=== PATIENT | female | born 1985 | race African-American/Black ===

== ENCOUNTER 2017-01-06 17:01 | Emergency (ER) | payer OTHER ==
[2017-01-06 17:43] LABS: #Monocytes 0.3 thou/uL (0.11-0.59); #Neutrophils 1.9 thou/uL (1.40-6.50); %Basophils 0.3 % (0.0-1.0); %Eosinophils 0.4 % (0.0-10.0); %Lymphocytes 30.4 % (21.0-51.0); %Monocytes 10.6 % (0.0-10.0); Hematocrit 33.9 % (36.0-47.0); Mean Platelet Volume 6.6 fL (7.4-10.4); Red Blood Cell (RBC) Count 3.81 mill/uL (4.20-5.40); White Blood Cell (WBC) Count 3.2 thou/uL (4.8-10.8)
[2017-01-06 18:07] LABS: ALT (SGPT) 35 U/L (8-55); AST (SGOT) 28 U/L (5-34); Alkaline Phosphatase 81 U/L (40-150); Anion Gap 13 mmol/L (10-20); BUN (Urea Nitrogen) 8 mg/dL (7.0-18.7); Bilirubin, Total 0.3 mg/dL (0.2-1.2); CK (CPK) 38 U/L (29-168); Calc. Creatinine Clearance 0 mL/min (70-130); Calcium 10.1 mg/dL (7.8-10.44); Carbon Dioxide 22 mmol/L (22-29); Chloride 104 mmol/L (98-107); Estimated GFR-MDRD Greater than 90; Lipase 12 U/L (8-78); Protein, Total 7.8 g/dL (6.0-8.3)
[2017-01-06 18:10] LABS: Troponin I Less than 0.010 ng/mL (< 0.028)
[2017-01-06] MEDS ORDERED: Acetaminophen 325 MG Suppository ONE (18:47)
[2017-01-06] MEDS ORDERED: Acetaminophen 325 MG TAB ONE (18:48)
--- NOTE | 2017-01-06 19:34 | RAD ---
CHEST ONE VIEW: 01/06/18 COMPARISON: 10/01/10 study. HISTORY: Sharp pain in chest. Patient was shielded for this exam. Heart size and mediastinum are within normal limits. The lungs are clear of infiltrates. No bony fin dings. IMPRESSION: No active intrathoracic disease. POS: [facility]
== END 2017-01-06 19:42 | disposition home or self-care (01) ==
LOC: ERS 17:01
DX: O99.89 Other specified diseases and conditions complicating pregnancy, childbirth and the puerperium (principal); M54.6 Pain in thoracic spine; R07.89 Other chest pain; Z87.891 Personal history of nicotine dependence; Z3A.00 Weeks of gestation of pregnancy not specified
CPT/HCPCS: 71010; 80053; 82553; 83690; 84484; 85025; 93005

== ENCOUNTER 2017-03-17 10:03 | Day surgery (SDC) | payer OTHER ==
[2017-03-17 11:31] VITALS: BP 151/89; TEMP 98.1
[2017-03-17 11:32] VITALS: BMI 39.7
--- NOTE | 2017-03-17 13:05 | PDOC.LDHP ---
Labor and Delivery H&P Chief complaint: other (Elevated blood pressure) HPI: Patient is a 32 year old 002 @ 36.2 weeks who presents for evaluation of elevated blood pressure. Patient was sent over from clinic where she had blood pressures of 140s/90s. Outpatient workup was started but is incomplete. The decision was made to admit patient to L&D for observation/preeclampsia workup. She complains of 3 week history of "seeing spots" in her visual [place] intermittently. She denies headache, loss of fluid, decrease in movement and vaginal bleeding. Current gestational age (weeks): 36 (36.3 weeks) Due date: 04/11/17 Dating criteria: last menstrual period Current complications: gestational hypertension, other (glucose intolerance; recurrent UTIs on suppressive therapy.) Past Medical History: None Current medications: pre-bonita vitamins, other (Keflex) Previous surgical history: low tranverse CS Social history: none - Physical Exam Vital signs reviewed and normal: yes (BP: 151/89) Heart: RRR Abdomen: gravid Extremeties: no edema FHT: category 1 (reactive strip) Brinckerhoff contractions every: none - OB Labs Blood type: O RH: positive Antibody Screen: negative HIV: negative RPR: negative HEPSAg: negative 1 hour GCT: positive 3 hour GTT: negative ((199 after 1 hr; 2 and 3 hr values normal)) GBS: unknown Rubella: immune - Assessment Gestational Hypertension (rule out preeclampsia) - Plan -: We will order CBC, CMP, Uric acid, Urine protein and creatinine to evaluate for presence of preeclampsia. Continue routine BP and monitoring. If gestational HTN or pre-e without severe features present, will discharge with follow-up for testing. <Margarita Deng - Last Filed: 03/17/17 13:02> <Hong Medellin - Last Filed: 03/17/17 13:44> Allergies/Adverse Reactions: Allergies Allergy/AdvReac Type Severity Reaction Status Date / Time No Known Drug Allergies Allergy Verified 03/17/17 11:25 Attending Addendum - Attending Addendum I personally evaluated the patient and discussed the management with Dr. Deng. The H&P is repeated by me. I agree with the History, Examination, Assessment and Plan documented above with any addition or exceptions noted below. <Hong Medellin - Last Filed: 03/17/17 13:44>
[2017-03-17 13:22] LABS: #Basophils 0.1 thou/uL (0.0-0.2); #Lymphocytes 1.6 thou/uL (1.20-3.40); #Monocytes 0.3 thou/uL (0.11-0.59); #Neutrophils 2.4 thou/uL (1.40-6.50); %Basophils 1.9 % (0.0-1.0); %Eosinophils 0.5 % (0.0-10.0); %Lymphocytes 36.4 % (21.0-51.0); %Monocytes 7.4 % (0.0-10.0); %Neutrophils 53.9 % (42.0-75.0); Hemoglobin 11.5 g/dL (12.0-16.0); Mean Corpuscular HGB CONC 34.6 g/dL (32.0-36.0); Mean Corpuscular Volume 89.6 fl (81.0-99.0); Mean Platelet Volume 6.5 fL (7.4-10.4); Platelet Count 208 thou/uL (130-400); RBC Distribution Width 13.4 % (11.5-14.5); Red Blood Cell (RBC) Count 3.71 mill/uL (4.20-5.40); White Blood Cell (WBC) Count 4.5 thou/uL (4.8-10.8)
[2017-03-17 13:56] LABS: ALT (SGPT) 17 U/L (8-55); AST (SGOT) 15 U/L (5-34); Albumin 3.6 g/dL (3.5-5.0); Alkaline Phosphatase 116 U/L (40-150); Anion Gap 12 mmol/L (10-20); BUN (Urea Nitrogen) 7 mg/dL (7.0-18.7); Bilirubin, Total 0.4 mg/dL (0.2-1.2); Calc. Creatinine Clearance 194 mL/min (70-130); Calcium 9.6 mg/dL (7.8-10.44); Carbon Dioxide 19 mmol/L (22-29); Chloride 106 mmol/L (98-107); Estimated GFR-MDRD Greater than 90; Globulin 3.7 g/dL (2.4-3.5); Glucose 88 mg/dL (70-105); Potassium 4.1 mmol/L (3.5-5.1); Protein, Total 7.3 g/dL (6.0-8.3); Sodium 133 mmol/L (136-145); Uric Acid 3.9 mg/dL (2.6-6.0)
[2017-03-17 14:41] LABS: Creatinine, Urine 138.27 mg/dL (47-110)
== END 2017-03-17 15:10 | disposition home or self-care (01) ==
LOC: L&D/OP 10:03
PROVIDERS: ATTEND Family Medicine
DX: O99.89 Other specified diseases and conditions complicating pregnancy, childbirth and the puerperium (principal); O16.3 Unspecified maternal hypertension, third trimester; E74.39 Other disorders of intestinal carbohydrate absorption; Z3A.36 36 weeks gestation of pregnancy; Z79.2 Long term (current) use of antibiotics; Z79.899 Other long term (current) drug therapy; Z98.890 Other specified postprocedural states; Z87.440 Personal history of urinary (tract) infections; Z87.891 Personal history of nicotine dependence
CPT/HCPCS: 36415; 80053; 82570; 84156; 84550; 85025; 99282

== ENCOUNTER 2017-03-23 11:05 | Inpatient (IN) | payer OTHER ==
[2017-03-23 11:44] VITALS: BMI 39.4
--- NOTE | 2017-03-23 11:55 | PDOC.LDHP ---
Labor and Delivery H&P Chief complaint: other (Dizziness, Nose bleed with history of high blood pressures) HPI: 32 year old at 37.1 weeks by LMP/14.2 wk sono presents for nose bleed, dizziness and high blood pressure readings. Onset of symptoms 2 days ago. Stated she got dizzy to the point that she felt unsteady and needed assistance walking. That has since resolved. She also has nasal congestion which has been present for the last couple of days. Patient denies any complications in current . She has had several high BP readings, but has not been diagnosed with pre-eclampsia. Current gestational age (weeks): 37 (37.1 wks) Due date: 04/09/16 Dating criteria: last menstrual period, first trimester ultrasound (LMP/14.2 wk sono) Grav: 3 Para: 2 OB History Details: No complications. Several high blood pressure readings without diagnosis of gestational HTN or pre-eclampsia. Current complications: other (Recurrent UTI's. Several high blood pressure readings.) Abnormal US findings: No Past Medical History: None Current medications: pre- vitamins, other (Keflex for recurrent UTI's) Previous surgical history: low tranverse CS (x2) Social history: none - Physical Exam Vital signs reviewed and normal: yes Abnormal vital signs: BP 145/90 General: NAD, resting Heart: RRR Lungs: CTAB Abdomen: NTTP Extremeties: no edema FHT: category 1, variability present Pepin contractions every: none - OB Labs Blood type: O RH: positive HIV: negative RPR: negative 1 hour GCT: positive 3 hour GTT: negative Rubella: immune - Assessment Term with elevated BP readings. - Plan Plan: admit to L&D -: -Will continue to monitor BP and FHR. Patient has had two prior LTCS. Will consider scheduling for C/S if elevated BP persists. -Pre-eclampsia labs pending <Bibi Goldberg - Last Filed: 03/23/17 13:38> <Marifer Ge - Last Filed: 03/23/17 14:16> Allergies/Adverse Reactions: Allergies Allergy/AdvReac Type Severity Reaction Status Date / Time No Known Drug Allergies Allergy Verified 03/17/17 11:25 Attending Addendum - Attending Addendum I personally evaluated the patient and discussed the management with Dr. Goldberg I agree with the History, Examination, Assessment and Plan documented above with any addition or exceptions noted below- 32 year old @ 37 2/7 weeks presented c/o nosebleeds and elevated BP at home. Denies any BALES, visual changes. (+) FM. Patient seen last week in clinic and L&D for evaluation of BPs. Labs negative for pre-eclampsia from that admission. Today BPs 130-140s/80- 90s. Meets criteria for gestational HTN. Will plan to proceed with repeat C- section for gestational HTN at term.. <Marifer Ge - Last Filed: 03/23/17 14:16>
[2017-03-23] MEDS ORDERED: Ondansetron HCl/PF 4 MG/2 ML Vial ONE (13:46)
[2017-03-23] MEDS ORDERED: PHENYLEPHRINE-NS 100 MCG/ML 10 ML SYRINGE ONE (13:46)
[2017-03-23] MEDS ORDERED: Dexamethasone 20 MG/5 ML VIAL ONE (13:46)
[2017-03-23] MEDS ORDERED: Ketorolac Tromethamine 30 MG/ML VIAL ONE ×2 (13:46→16:16)
[2017-03-23 13:47] LABS: #Lymphocytes 1.4 thou/uL (1.20-3.40); #Monocytes 0.3 thou/uL (0.11-0.59); %Basophils 0.5 % (0.0-1.0); %Eosinophils 0.3 % (0.0-10.0); %Lymphocytes 37.6 % (21.0-51.0); %Monocytes 7.7 % (0.0-10.0); %Neutrophils 53.9 % (42.0-75.0); Hemoglobin 11.7 g/dL (12.0-16.0); Mean Corpuscular HGB CONC 34.5 g/dL (32.0-36.0); Mean Corpuscular Hemoglobin 30.7 pg (27.0-31.0); Mean Corpuscular Volume 88.9 fl (81.0-99.0); Mean Platelet Volume 6.6 fL (7.4-10.4); Platelet Count 208 thou/uL (130-400); RBC Distribution Width 13.5 % (11.5-14.5); Red Blood Cell (RBC) Count 3.81 mill/uL (4.20-5.40); White Blood Cell (WBC) Count 3.6 thou/uL (4.8-10.8)
[2017-03-23 14:12] LABS: ALT (SGPT) 18 U/L (8-55); AST (SGOT) 14 U/L (5-34); Albumin 3.5 g/dL (3.5-5.0); Alkaline Phosphatase 131 U/L (40-150); Anion Gap 12 mmol/L (10-20); BUN (Urea Nitrogen) 6 mg/dL (7.0-18.7); Bilirubin, Total 0.4 mg/dL (0.2-1.2); Calc. Creatinine Clearance 198 mL/min (70-130); Calcium 9.5 mg/dL (7.8-10.44); Carbon Dioxide 19 mmol/L (22-29); Chloride 106 mmol/L (98-107); Estimated GFR-MDRD Greater than 90; Globulin 3.9 g/dL (2.4-3.5); Glucose 83 mg/dL (70-105); Protein, Total 7.4 g/dL (6.0-8.3); Sodium 133 mmol/L (136-145)
[2017-03-23 14:19] LABS: Creatinine, Urine 199.16 mg/dL (47-110)
[2017-03-23] MEDS ORDERED: Promethazine HCl 25 MG/ML VIAL IM PRN ×3 (14:38→21:58)
[2017-03-23] MEDS ORDERED: Ondansetron HCl/PF 4 MG/2 ML Vial IVP PRN ×4 (14:38→21:58)
[2017-03-23] MEDS ORDERED: Bicitra 30 ML UDCUP PO SCH (14:45)
[2017-03-23] MEDS ORDERED: Morphine PF 1 MG/ML SYR ONE (14:59)
[2017-03-23] MEDS ORDERED: CEFAZOLIN/Water 2 GM/20 ML SYRINGE SLOW IVP SCH (15:00)
[2017-03-23 15:05] LABS: Hemoglobin 11.8 g/dL (12.0-16.0); Mean Corpuscular HGB CONC 34.2 g/dL (32.0-36.0); Mean Corpuscular Hemoglobin 30.7 pg (27.0-31.0); Mean Corpuscular Volume 89.6 fl (81.0-99.0); Mean Platelet Volume 6.4 fL (7.4-10.4); Platelet Count 207 thou/uL (130-400); RBC Distribution Width 13.6 % (11.5-14.5); Red Blood Cell (RBC) Count 3.85 mill/uL (4.20-5.40); White Blood Cell (WBC) Count 4.4 thou/uL (4.8-10.8)
[2017-03-23] MEDS ORDERED: Eucerin (Mineral Oil/Petrolatum,White) 30 gm Jar TOP PRN ×2 (15:08→21:58)
[2017-03-23] MEDS ORDERED: Naloxone HCl 0.4 mg/ml Vial IVP PRN ×4 (15:08→21:58)
[2017-03-23] MEDS ORDERED: HYDROmorphone 2 MG/ML VIAL SLOW IVP PRN (15:08)
[2017-03-23] MEDS ORDERED: Meperidine HCl/PF 25 MG/ML VIAL SLOW IVP PRN (15:08)
[2017-03-23] MEDS ORDERED: diphenhydrAMINE 50 MG/ML VIAL IVP PRN ×2 (15:08→21:58)
[2017-03-23] MEDS ORDERED: Promethazine HCl 25 MG SUPP PR PRN ×2 (15:08→21:58)
[2017-03-23] MEDS ORDERED: Naloxone HCl 0.4 mg/ml Vial IV PRN ×2 (15:08→21:58)
[2017-03-23] MEDS ORDERED: Ketorolac Tromethamine 30 MG/ML VIAL IVP PRN ×2 (15:08→21:58)
[2017-03-23] MEDS ORDERED: Communication Order-Pharmacy FS SCH ×2 (15:15→22:00)
[2017-03-23] MEDS ORDERED: Ketorolac Tromethamine 30 MG/ML VIAL IVP SCH (15:15)
[2017-03-23 15:45] LABS: Syphilis Antibody Nonreactive (Nonreactive); Syphilis Antibody Index 0.06 S/CO (<1.00 Non-Reactive)
[2017-03-23 15:51] LABS: HBSAg Index 0.17 S/CO (0-0.99); Hep B Surf Ag Non-Reactive S/CO (NonReactive)
[2017-03-23] MEDS ORDERED: Dexamethasone 4 mg/ml Vial ONE (16:16)
--- NOTE | 2017-03-23 18:29 | PDOC.OPDEL ---
OB Operative/Delivery Note Delivery Dr/Surgeon: Lona Paris MD;Kael Grove MD Assist: Shira Goldberg DO Pre-Delivery Diagnosis: other (Repeat 2/2 gestational hypertension) Procedure/Post Delivery Dx: repeat low transverse CS Weeks gestation: 37 Anesthesia: spinal - Findings male infant - 1 min: 3 - 5 min: 8 - Additional Findings/Plan Placenta delivered: manual removal findings: low transverse hysterotomy without extension, normal uterus Estimated blood loss: 700 Compilations/Other Findings: Male fetus delivered in footling breech position Post delivery plan: routine recovery
[2017-03-23] MEDS ORDERED: Adacel (T-DAP) 0.5 ML VIAL IM ONE (18:59)
[2017-03-23] MEDS ORDERED: Lanolin Ointment 7 GM TUBE TOP PRN (18:59)
--- NOTE | 2017-03-23 19:04 | PDOC.OP ---
Operative Note - Operative Note Operative Note: Date of Procedure: 03/23/2017 Resident Surgeon: Lona Paris MD; Kael Grove MD Tourist Agent Surgeon: Shira Goldberg DO Attending Surgeon:Marifer Ge MD Procedure: Repeat low transverse caesarean section Preoperative Diagnosis: 1)Term intrauterine 2)Previous x 2 3)Gestational HTN 4)persistent E. coli bacteruria, resolved in 3rd trimester 5)glucose intolerance Postoperative Diagnosis: 1)Term intrauterine - delivered 2)Previous x 2 3)Gestational HTN 4)persistent E. coli bacteruria, resolved in 3rd trimester 5)single footling breech delivery Anesthesia: spinal Indications: The patient is a 32 year old G3,P2002 female at 37.1 weeks gestation who presents with gestational HTN at greater than 37 weeks. Procedure in Detail: After risks, benefits, and alternatives were explained to the patient, she gave informed consent. Pre-operative antibiotics included Cefazolin 2 gram IV. The patient was taken to the operating room and spinal anesthesia was initiated. She was placed in the supine position with a left tilt and prepped and draped in usual sterile fashion. A Pfannenstiel incision was made with a scalpel and carried down to the level of the fascia which was sharply nicked. The fascial cut was extended bilaterally with Tomas scissors. The inferior and superior edges of the cut fascial edges were elevated with Maira clamps and the underlying rectus muscles were sharply and bluntly dissected free. The recti were divided digitally and retracted manually. The peritoneum was entered bluntly and retracted manually. Bladder blade was placed. Bladder flap was created with Metzenbaum scissors. A low transverse score was made with the scalpel and the uterus was entered in the midline with the scalpel. Clear fluid was seen. The hysterotomy was extended manually. The was noted to be in single footling breech position. Second foot was identified and brought down to hysterotomy. Remainder of delivery performed via routine breech extraction. Cord clamped and cut and grossly normal male was quickly taken to awaiting maria a team. Cord blood was obtained. Placenta was manually extracted, found to be intact with 3 vessel cord and discarded. The endometrium was curetted with a dry lap internally. The bladder blade was replaced and the uterus was closed with a running locking #0-Vicryl followed by one figure of eight stitch. Following this hemostasis was noted. The abdomen was irrigated with saline and suctioned free of clots. The hysterotomy was noted to be hemostatic. The fascia was closed with a running non-locking 0- Vicryl suture. The subcutaneous tissue was irrigated and there were no bleeders. Three simple interrupted subcutaneous stitches were placed with 2-0 chromic. The skin was approximated with bronwyn and a pressure dressing was placed. All counts were correct. The patient tolerated the procedure well and was taken to the recovery room in stable condition. Estimated Blood Loss: 700 ml Complications: None Specimens: Cord blood sent to lab for blood type, cord gas obtained Findings: Grossly normal male infant with apgars of 3 and 8. Grossly normal placenta with 3 vessel cord sent for pathology. Drains: Shipman to gravity draining clear urine <Lona Paris - Last Filed: 03/23/17 18:40> Attending Addendum - Attending Addendum I was present and assisted throughtout the procedure. Infant found to be in single footling breech presentation. With some difficulty, second leg/foot was identified and brought to the hysterotomy and breech extraction was performed with usual maneuvers. Viable male , Apgars 3/8. EBL 700 mL. Infant to nursery and mother to recovery in stable condition. <Marifer Ge - Last Filed: 03/26/17 09:58>
[2017-03-23] MEDS ORDERED: Ferrous Sulfate 325 MG TAB PO SCH (21:00)
[2017-03-23] MEDS ORDERED: Ibuprofen 800 MG TAB PO SCH (22:00)
[2017-03-24] MEDS ORDERED: Ibuprofen 800 MG TAB PO SCH (06:00)
[2017-03-24 06:02] LABS: Hemoglobin 10.5 g/dL (12.0-16.0); Mean Corpuscular HGB CONC 33.9 g/dL (32.0-36.0); Mean Corpuscular Hemoglobin 30.5 pg (27.0-31.0); Mean Corpuscular Volume 89.9 fl (81.0-99.0); Mean Platelet Volume 6.7 fL (7.4-10.4); Platelet Count 195 thou/uL (130-400); RBC Distribution Width 13.5 % (11.5-14.5); Red Blood Cell (RBC) Count 3.45 mill/uL (4.20-5.40); White Blood Cell (WBC) Count 7.8 thou/uL (4.8-10.8)
--- NOTE | 2017-03-24 08:00 | PDOC.PP ---
Post Progress Note Post Day #: 1 Subjective: doing well. Pain well controlled. Shipman to be removed this AM and diet to be advanced. Tolerated fluids. PO intake tolerated: yes Ambulation: no Vital Signs (12 hours) Temp Pulse Resp BP 03/24/17 07:20 98.2 F 74 20 03/24/17 05:57 98.2 F 74 20 113/55 L 03/24/17 00:23 98.5 F 72 20 121/56 L 03/23/17 21:45 97.7 F 63 18 113/59 L Weight Weight 114.305 kg - Physical Examination General: NAD Cardiovascular: no m/r/g, RRR Respiratory: clear to auscultation bilaterally, non-labored breathing Abdominal: + bowel sounds, lochia, no distention, appropriately TTP Extremities: negative homans (B) Skin: CS incision dry & intact Neurological: no gross focal deficits Psychiatric: A&Ox3, normal affect Result Diagrams: 03/24/17 05:38 03/23/17 13:20 Additional Labs: Post Labs Blood Type O POSITIVE 03/23/17 14:41 Hep Bs Antigen Non-Reactive S/CO (NonReactive) 03/23/17 14:41 (1) Term delivered Code(s): O80 - ENCOUNTER FOR FULL-TERM UNCOMPLICATED DELIVERY Status: Acute (2) S/P repeat low transverse Code(s): Z98.891 - HISTORY OF UTERINE SCAR FROM PREVIOUS SURGERY Status: Acute (3) Glucose intolerance of Code(s): O99.810 - ABNORMAL GLUCOSE COMPLICATING Status: Chronic (4) Gestational hypertension affecting third Code(s): O13.9 - GESTATIONAL HTN W/O SIGNIFICANT PROTEINURIA, UNSP TRIMESTER; O09.40 - SUPERVISION OF W GRAND MULTIPARITY, UNSP TRIMESTER Status: Acute - Assessment/Plan 32 yr old s/p RLTCS at 37.1 wks 2/2 prior c section and gestational HTN. 1. s/p RLTCS- doing well, advance diet, ambulate today. HGB > 10. cont motrin for pain PRN. 2. gestational HTN- pressures well controlled since delivery. No evidence for pre-e and no severe range pressures prior to delivery. cont to monitor BP. 3. persistent bacteruria in - resolved in 3T, S/P keflex ppx. Will DC keflex and only treat symptomatic UTI. 4. glucose intolerance- nml 3 hr. 5. contraception- patient currently undecided. F/U in 2 weeks in clinic to discuss. Likely DC in AM. <Lona Paris - Last Filed: 03/24/17 07:58> Vital Signs (12 hours) Temp Pulse Resp BP 03/24/17 18:20 99.3 F 83 20 124/66 03/24/17 15:33 98.1 F 73 20 03/24/17 12:00 98.1 F 73 20 111/54 L 03/24/17 11:58 98.7 F 70 20 03/24/17 08:32 98.7 F 70 20 110/73 Weight Weight 114.305 kg Result Diagrams: 03/24/17 05:38 03/23/17 13:20 Additional Labs: Post Labs Blood Type O POSITIVE 03/23/17 14:41 Hep Bs Antigen Non-Reactive S/CO (NonReactive) 03/23/17 14:41 <Marifer Ge - Last Filed: 03/24/17 20:00> Attending Addendum - Attending Addendum I personally evaluated the patient and discussed the management with Dr. Goldberg. I agree with the History, Examination, Assessment and Plan documented above with any addition or exceptions noted below- Patient without complaints. Tolerating diet. Pain well controlled. Afebrile VSS. A/P: 1) POD#1 s/p repeat C- section - continue routine postop care. H/H stable. 2) Gestational HTN- BP improved; continue to monitor. <Marifer Ge - Last Filed: 03/24/17 20:00>
[2017-03-24] MEDS: Prenatal Vitamin 1 TAB PO SCH (09:55)
[2017-03-24] MEDS ORDERED: HYDROcodone/Acetaminophen 5/325 mg Tablet PO PRN (15:32)
[2017-03-24] MEDS ORDERED: Simethicone Chewable 80 MG TAB PO SCH (15:45)
[2017-03-24] MEDS: HYDROcodone/Acetaminophen 5/325 mg Tablet PO PRN ×2 (15:50→19:34)
[2017-03-24] MEDS: Simethicone Chewable 80 MG TAB PO SCH ×2 (19:35→22:47)
[2017-03-24] MEDS ORDERED: Doxylamine 25 MG TAB PO PRN (21:50)
[2017-03-25] MEDS ORDERED: Ibuprofen 800 MG TAB PO SCH (06:00)
--- NOTE | 2017-03-25 06:39 | PDOC.PP ---
Post Progress Note Post Day #: 2 Subjective: Patient doing well. Tolerating PO well. Passing flatus, no BM. Lochia decreased. Ambulating with some pain but is controlled with meds. PO intake tolerated: yes Flatus: yes Ambulation: yes Vital Signs (12 hours) Temp Pulse Resp BP 03/25/17 04:12 98.4 F 87 20 136/78 03/24/17 23:55 98.4 F 86 22 H 138/76 03/24/17 19:35 98.2 F 91 20 111/63 Weight Weight 114.305 kg - Physical Examination General: NAD Cardiovascular: no m/r/g, RRR Respiratory: clear to auscultation bilaterally, non-labored breathing Abdominal: lochia (decreased), no distention, appropriately TTP Extremities: negative homans (B) Skin: CS incision dry & intact, no rash Neurological: no gross focal deficits Psychiatric: A&Ox3, normal affect Result Diagrams: 03/24/17 05:38 03/23/17 13:20 Additional Labs: Post Labs Blood Type O POSITIVE 03/23/17 14:41 Hep Bs Antigen Non-Reactive S/CO (NonReactive) 03/23/17 14:41 (1) Term delivered Code(s): O80 - ENCOUNTER FOR FULL-TERM UNCOMPLICATED DELIVERY Status: Acute (2) S/P repeat low transverse Code(s): Z98.891 - HISTORY OF UTERINE SCAR FROM PREVIOUS SURGERY Status: Acute (3) Glucose intolerance of Code(s): O99.810 - ABNORMAL GLUCOSE COMPLICATING Status: Chronic (4) Gestational hypertension affecting third Code(s): O13.9 - GESTATIONAL HTN W/O SIGNIFICANT PROTEINURIA, UNSP TRIMESTER; O09.40 - SUPERVISION OF W GRAND MULTIPARITY, UNSP TRIMESTER Status: Acute - Assessment/Plan 32 yr old s/p RLTCS at 37.1 wks 2/2 prior c section and gestational HTN. 1. post op day # 2 s/p RLTCS- doing well, DC later this AM. cont motrin for pain PRN. F/U 03/28/2017 at [facility] for staple removal. 2. gestational HTN-BP controlled since delivery, f/u on 03/28/2017 in clinic. 3. persistent bacteruria in -resolved, no further ppx abx. 4. glucose intolerance- nml 3 hr. 5. contraception- patient currently undecided. F/U in 2 weeks in clinic to discuss. DC with pelvic rest x 6 wks and lifting precautions. <Lona Paris - Last Filed: 03/25/17 06:39> Vital Signs (12 hours) Temp Pulse Resp BP 03/25/17 08:32 98.0 F 95 20 130/78 03/25/17 08:00 98.0 F 95 20 03/25/17 04:12 98.4 F 87 20 136/78 03/24/17 23:55 98.4 F 86 22 H 138/76 Weight Weight 114.305 kg Result Diagrams: 03/24/17 05:38 03/23/17 13:20 Additional Labs: Post Labs Blood Type O POSITIVE 03/23/17 14:41 Hep Bs Antigen Non-Reactive S/CO (NonReactive) 03/23/17 14:41 <Marifer Ge - Last Filed: 03/25/17 11:46> Attending Addendum - Attending Addendum I personally evaluated the patient and discussed the management with Dr. Paris I agree with the History, Examination, Assessment and Plan documented above with any addition or exceptions noted below- Patient without complaints. Tolerating diet. Ambulating/voiding. Afebrile VSS. A/P: POD #2 s/p repeat C- section- Plan to d/c home today. F/U at [facility] [place] [place] on Monday. <Marifer Ge - Last Filed: 03/25/17 11:46>
[2017-03-25 08:33] VITALS: BP 130/78; TEMP 98
[2017-03-25] MEDS: Prenatal Vitamin 1 TAB PO SCH (09:20)
[2017-03-25] MEDS: Simethicone Chewable 80 MG TAB PO SCH (09:22)
[2017-03-25] MEDS: HYDROcodone/Acetaminophen 5/325 mg Tablet PO PRN (12:17)
== END 2017-03-25 12:20 | disposition home or self-care (01) | DRG 766 ==
LOC: L&D/OP 11:05 → L&D 14:46 → 3SW 18:37
PROVIDERS: ADMIT Family Medicine; ATTEND Family Medicine
PROC: 10D00Z1 Extraction of Products of Conception, Low, Open Approach (ICD-10-PCS; principal; 2017-03-23)
PROC: 10907ZC Drainage of Amniotic Fluid, Therapeutic from Products of Conception, Via Natural or Artificial Opening (ICD-10-PCS; 2017-03-23)
DX: O13.4 Gestational [pregnancy-induced] hypertension without significant proteinuria, complicating childbirth (principal); O99.810 Abnormal glucose complicating pregnancy; O32.8XX0 Maternal care for other malpresentation of fetus, not applicable or unspecified; O34.211 Maternal care for low transverse scar from previous cesarean delivery; O34.43 Maternal care for other abnormalities of cervix, third trimester; Z37.0 Single live birth; Z3A.37 37 weeks gestation of pregnancy; Z87.440 Personal history of urinary (tract) infections
CPT/HCPCS: 36415; 51702; 80053; 82570; 82805; 84156; 84550; 85025; 85027; 86780; 86850; 86900; 86901; 87340; 88307; 99285; J1100; J1200; J1885; J2274; J2405

== ENCOUNTER 2018-03-19 13:05 | Emergency (ER) | payer OTHER, SELFPAY ==
[2018-03-19 13:43] LABS: Bilirubin Negative (Negative); Blood, Urine Trace (Negative); Clarity CLOUDY (Clear); Glucose, Urine (Dipstick) Negative (Negative); Leukocyte Negative (Negative); Nitrite Negative (Negative); Protein, Urine (Dipstick) Trace mg/dL (Neg-Trace); Specific Gravity, Urine 1.023 (1.002-1.036)
[2018-03-19 13:45] LABS: Bacteria/HPF 2+ HPF (None Seen); Hyaline Casts/LPF 0-3 HYALINE CAST LPF (0-3 Hyaline); Pathc Cast-AUWi Flag 0.43 (0-2.49); Pregnancy Test - Urine (BHCG) POSITIVE (Negative); Pregu Control Background? CLEAR/WHITE (CLR/WHITE); Pregu Control Bar Appear? YES (CONTROL BAR); RBC/HPF 0-3 HPF (0-3); Specific Gravity 1.023 (1.002-1.036); WBC/HPF 0-3 HPF (0-3)
[2018-03-19 13:57] LABS: Hemoglobin 13.2 g/dL (12.0-16.0); Mean Corpuscular HGB CONC 34.2 g/dL (32.0-36.0); Mean Corpuscular Hemoglobin 29.9 pg (27.0-31.0); Mean Corpuscular Volume 87.4 fL (78.0-98.0); Mean Platelet Volume 7.1 fL (7.4-10.4); Platelet Count 206 thou/uL (130-400); RBC Distribution Width 12.1 % (11.5-14.5); Red Blood Cell (RBC) Count 4.42 mill/uL (4.20-5.40)
[2018-03-19 14:16] LABS: Band 2 % (5-11); Eosinophils 1 % (0-10); Lymphocytes 56 % (21-51); MDiff Complete? YES; Monocytes 3 % (0-10); Neutrophil 34 % (42-75); PLT Morphology Comment Appears Adequate; RBC Morphology Normal; Reactive Lymphocytes 3 % (0-10)
--- NOTE | 2018-03-19 15:36 | ULT ---
PELVIC ULTRASOUND: 03/19/2018 HISTORY: Nausea, vomiting, and pelvic cramping. The patient had a positive home test. FINDINGS: Multiple endovaginal sonographic images of the pelvis were obtained. There is a fluid collection seen within the endometrial canal, which contains both a pole and a yolk sac. Cardiac Doppler does demonstrate heart tones with a heart rate of 122 beats p er minute. The crown-rump length measures 0.47 cm, consistent with a gestational age by ultrasound of 6 weeks 1 day. Gestational age by last menstrual period is 6 weeks 4 days. The left ovary is unable to be visualized. The right ovary measures 4.2 cm x 2.3 cm x 2.3 cm. There is a heterogeneous hypoechoic structure see n within the right ovary, measuring 2.1 cm in maximal dimensions, which may represent a corpus luteal cyst. Doppler evaluation of the right ovary with spectral analysis and color-flow evaluation does d emonstrate arterial flow. No free fluid is seen in the cul-de-sac. IMPRESSION: 1. Single intrauterine gestation with gestational age by measurement of the crown-rump length of 6 w eeks 1 day. heart tones are documented at 122 beats per minute. 2. Probable corpus luteal cyst in the right ovary. 3. Nonvisualization of the left ovary. POS: [facility]
== END 2018-03-19 14:50 | disposition home or self-care (01) ==
LOC: ERS 13:05
DX: O99.89 Other specified diseases and conditions complicating pregnancy, childbirth and the puerperium (principal); R10.30 Lower abdominal pain, unspecified; Z3A.01 Less than 8 weeks gestation of pregnancy
CPT/HCPCS: 36415; 76856; 81003; 81015; 81025; 84702; 85025

== ENCOUNTER 2018-07-27 16:25 | Day surgery (SDC) | payer OTHER ==
--- NOTE | 2018-07-27 18:06 | PDOC.FPROB ---
Addendum entered and electronically signed by Celi Scruggs MD 07/27/18 19:48 : Labs reviewed and wnl (besides A1C): Blood Type: O POSITIVE (04/06/2018 6:07:00 AM) Antibody Screen: NEGATIVE (04/06/2018 6:07:00 AM) Chlamydia: NEGATIVE (04/17/2018 6:20:00 PM) Gonorrhea: NEGATIVE (04/17/2018 6:20:00 PM) Hemoglobin: 12.3 (04/05/2018 10:06:00 PM) Hematocrit: 34.9 (04/05/2018 10:06:00 PM) Hepatitis B: NON-REACTIVE (04/06/2018 12:44:00 AM) Rubella: 294 (04/06/2018 4:51:00 AM) HIV: NON-REACTIVE (04/06/2018 12:44:00 AM) RPR: NON-REACTIVE (04/06/2018 1:46:00 AM) Pap Smear: NORMAL (04/19/2018 6:57:00 AM) GBS: NORMAL (03/18/2017 2:38:00 PM) Urine Protein: Tr (07/16/2018 9:56:40 AM) Original Note: FMR OB H&P: HPI - History of Present Illness Chief Complaint: CTX History of Present Illness: This is a 33 yo @ 24.5wks by LMP/6.1wk sono who was sent over from clinic today due to CTX every 2-3 minutes. The patient states the CTX started around 1000 this AM. She states she is "not much of a water drinker." She denies any LOF, vag bleeding, discharge or dysuria. She reports (+) FM throughout the day today. She has had some NV that has been present throughout her . She also endorses headaches occasionally, but none today. Patient diagnosed with pregestational diabetes controlled on metformin. Patient states she has been taking her medication as directed. She does not regularly check her sugars. Denies any vision changes, chest pain, SOB, LE edema. Primary Care Physician: Gael FMR OB H&P: Current - Care : 4 Para: 3 Gestational age: 24.5 Due date: 11/11/2018 Dating Criteria: LMP/6.1 wk sono Course/Complications: pregestational diabetes on metformin - OB Labs Gonorrhea: negative Chlamydia: negative A1c: 6.8 GBS: unknown - Anatomy Survey Anatomy survey: no abnormalities FMR OB H&P: History - Past Medical History PMH: pregestational DM, hyperemesis gravidarum - OB History OB History: 2002 viable F > 37 wks due to breech/failure to progress, no complications 2005 c section viable M > 37 wks, no complications 2017 c section viable M > 37 wks, HTN at end of - did not require medications, preE labs neg - ASSISTANT FINANCIAL ACCOUNTANT History ASSISTANT FINANCIAL ACCOUNTANT History: Pap nml this hx of STDs w/ first that was treated, neg since - Social History Social History: quit smoking 3 yrs ago, smoked 2packs/day for 10 yrs, denies alcohol or drug use - Family History Family History: Mom: DM, HTN, Dad: DM, Aunts: breast, other cancer unknown FMR OB H&P: Medications - Current Home Medications: Medication Instructions Recorded Confirmed Type Vitamin 1 tab PO DAILY 03/17/17 03/23/17 History Ondansetron [Zofran ODT] 4 mg PO Q4HR PRN #7 tab 07/27/18 Rx Allergies/Adverse Reactions: Allergies Allergy/AdvReac Type Severity Reaction Status Date / Time No Known Drug Allergies Allergy Verified 07/27/18 17:04 FMR OB H&P: ROS - Review of Systems General: denies: fever/chills, weight/appetite/sleep changes, night sweats, fatigue Eyes: denies: vision changes, double vision, scotomas, floaters ENT: denies: nasal congestion, rhinorrhea Cardiovascular: denies: chest pain, palpitation, edema Respiratory: denies: cough, congestion, shortness of breath Gastrointestinal: reports: abdominal pain, nausea, vomiting. denies: diarrhea, constipation Genitourinary (Female): reports: contractions. denies: dysuria, hematuria, vaginal discharge, vaginal pain, vaginal bleeding Musculoskeletal: denies: pain, stiffness, redness, swelling Neurologic: reports: headache. denies: syncope, weakness Integumentary: denies: rash Endocrine: denies: polyuria FMR OB H&P: Vital Signs - Heart Tones Variability: moderate [place] contractions every: none FMR OB H&P: Physical Exam - Physical Exam General: NAD, awake, alert and oriented HEENT: normocephalic and atraumatic, PERRLA, EOMI, MMM Neck: supple, FROM, trachea midline Chest: non-tender to palpation Heart: RRR, normal S1/S2, no murmurs/rubs/gallops, pulses present, no edema General: CTAB, no respiratory distress, good air movement, no rales/rhonchi, no wheezing, no retractions Abdomen: soft, gravid, non-tender, bowel sound present Musculoskeletal: FROM in all four extremities Skin: good tugor, capillary refill <2 seconds FMR OB H&P: A/P - Problem List (1) Pelvic pain affecting Status: Acute Code(s): O26.899 - OTH RELATED CONDITIONS, UNSPECIFIED TRIMESTER; R10.2 - PELVIC AND PERINEAL PAIN Disposition: Pelvic pain 2/2 mild dehydration - UA, VP3, GCC, cervical pending and biometry - PO hydrate - PRN zofran for Nausea Pregestational diabetes - on metformin - Encouraged patient to continue medication as directed and to monitor glucose Hx of hyperemesis gravidarum - patient not currently having N/V - Will continue to monitor, patient tolerating PO Case discussed with Dr. Maradiaga and Dr. Sotomayor who agree with assessment and plan. Dispo: Patient discharged home. Patient labs nml, biometry and cervical length wnl. Will f/u on GCC and VP3. Stressed importance of PO hydration to patient. Patient acknowledged understanding. Given ER precautions including CTX that are persistent and unable to talk through, LOF, vaginal bleeding, decreased FM. Discussion: Date/Time: 07/27/181803 This H&P was discussed with Dr. Maradiaga and Dr. Sotomayor who agree with the above documentation and plan. Addendum - Attending - Attending Attestation Date/Time: 07/28/18 [id number] I personally evaluated the patient and discussed the management with Dr. Scruggs I agree with the History, Examination, Assessment and Plan documented above with any addition or exceptions noted below. No evidence of PTL.
[2018-07-27 18:28] LABS: Bacteria/HPF None Seen HPF (None Seen); Hyaline Casts/LPF NONE SEEN LPF (0-3 Hyaline); RBC/HPF None Seen HPF (0-3); WBC/HPF None Seen HPF (0-3)
[2018-07-27] MEDS ORDERED: Lactated Ringer's 1,000 ML IV SCH (18:45)
--- NOTE | 2018-07-27 18:50 | ULT ---
EXAM: PELVIC ULTRASOUND: 07/27/18 HISTORY: Evaluate for labor. TECHNIQUE: Sagittal and transverse imaging of the gravid uterus is performed. FINDINGS: Cervical length appears to be between 4.2 and 4.5 cm. Single intrauterine gestation. Presentation is head to the maternal right. Posterior placenta. No previa. heart tones with a rate of 155 to 16 0 beats per minute. BIOMETRY: BPD 6.06 cm 24 weeks, 5 days Head circumference 23.19 cm 26 weeks, 2 days Abdominal circumference 22.02 cm 26 weeks, 3 days Femur length 5.02 cm 27 weeks, 0 days Estimated weight is 933 grams. Amniotic fluid index is 16.7 cm. Average age by sonography is 25 weeks, 6 days. LMP of 02/04/18 would imply a clinical age of 24 weeks, 5 days. IMPRESSION: 1. Intrauterine gestation with heart tones. Average age by sonography is 25 weeks, 6 days. 2. Estimated weight is 933 grams. 3. Limited evaluation of the cervix. Cervical length is between 4.2 and 4.5 cm. POS: [facility]
[2018-07-27 19:31] LABS: Bilirubin Negative (Negative); Blood, Urine Negative (Negative); Clarity CLEAR (Clear); Glucose, Urine (Dipstick) Negative (Negative); Leukocyte Negative (Negative); Nitrite Negative (Negative); Protein, Urine (Dipstick) Trace mg/dL (Neg-Trace); Specific Gravity, Urine 1.028 (1.002-1.036)
[2018-07-27 19:35] LABS: Urine Culture Reflex No No
[2018-07-28 23:03] LABS: GC by PCR Not Detected (NotDetected)
== END 2018-07-27 20:20 | disposition home health service (06) ==
LOC: L&D/OP 16:25
PROVIDERS: ATTEND Student in an Organized Health Care Education/Training Program
DX: O99.89 Other specified diseases and conditions complicating pregnancy, childbirth and the puerperium (principal); R10.2 Pelvic and perineal pain; O24.419 Gestational diabetes mellitus in pregnancy, unspecified control; Z3A.24 24 weeks gestation of pregnancy; Z79.84 Long term (current) use of oral hypoglycemic drugs; Z87.891 Personal history of nicotine dependence
CPT/HCPCS: 76805; 81003; 81015; 87480; 87510; 87591; 87660; 99284

== ENCOUNTER 2018-08-06 12:24 | Day surgery (SDC) | payer OTHER ==
[2018-08-06 13:08] VITALS: BMI 43.5
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
== END 2018-08-06 14:55 | disposition home or self-care (01) ==
LOC: L&D/OP 12:24
PROVIDERS: ATTEND Family Medicine
DX: O47.1 False labor at or after 37 completed weeks of gestation (principal); O24.419 Gestational diabetes mellitus in pregnancy, unspecified control; Z3A.26 26 weeks gestation of pregnancy; Z79.84 Long term (current) use of oral hypoglycemic drugs; Z87.891 Personal history of nicotine dependence
CPT/HCPCS: 99282

== ENCOUNTER 2018-10-12 16:29 | Day surgery (SDC) | payer OTHER ==
[2018-10-12] MEDS ORDERED: hydrALAZINE 20 MG/ML VIAL SLOW IVP PRN (16:44)
[2018-10-12 17:31] LABS: #Lymphocytes 1.6 thou/uL (1.20-3.40); #Monocytes 0.4 thou/uL (0.11-0.59); #Neutrophils 2.8 thou/uL (1.40-6.50); %Basophils 0.2 % (0.0-1.0); %Eosinophils 0.7 % (0.0-10.0); %Lymphocytes 33.2 % (21.0-51.0); %Monocytes 8.4 % (0.0-10.0); %Neutrophils 57.6 % (42.0-75.0); Hemoglobin 10.8 g/dL (12.0-16.0); Mean Corpuscular HGB CONC 35.4 g/dL (32.0-36.0); Mean Corpuscular Hemoglobin 29.5 pg (27.0-31.0); Mean Corpuscular Volume 83.4 fL (78.0-98.0); Mean Platelet Volume 7.2 fL (7.4-10.4); Platelet Count 182 thou/uL (130-400); RBC Distribution Width 12.2 % (11.5-14.5); Red Blood Cell (RBC) Count 3.65 mill/uL (4.20-5.40); White Blood Cell (WBC) Count 4.9 thou/uL (4.8-10.8)
[2018-10-12 17:52] VITALS: BMI 43.4
[2018-10-12 17:55] LABS: ALT (SGPT) 7 U/L (8-55); AST (SGOT) 10 U/L (5-34); Albumin 3.3 g/dL (3.5-5.0); Alkaline Phosphatase 155 U/L (40-150); Anion Gap 11 mmol/L (10-20); BUN (Urea Nitrogen) 5 mg/dL (7.0-18.7); Bilirubin, Total 0.6 mg/dL (0.2-1.2); Calc. Creatinine Clearance 198 mL/min (70-130); Calcium 9.2 mg/dL (7.8-10.44); Carbon Dioxide 21 mmol/L (22-29); Chloride 104 mmol/L (98-107); Estimated GFR-MDRD Greater than 90; Globulin 3.4 g/dL (2.4-3.5); Glucose 75 mg/dL (70-105); Potassium 3.7 mmol/L (3.5-5.1); Protein, Total 6.7 g/dL (6.0-8.3); Sodium 132 mmol/L (136-145); Uric Acid 3.8 mg/dL (2.6-6.0)
--- NOTE | 2018-10-12 18:11 | ULT ---
ULTRASOUND BIOPHYSICAL PROFILE WITH DECREASED MOVEMENT: 10/12/18 FINDINGS: Limited ultrasound examination demonstrates an ESTEFANY of 8.1 cm and heart rate of 160 beats per mi nute. tone: 2 out of 2. breathin out of 2. movement: 2 out of 2. Amniotic fluid level: 2 out of 2. Fetus in the vertex presentation. The placenta is on the left aspect of the fundus. The cervix is not well seen. IMPRESSION: Biophysical profile of 6 out of 8 with 0 out of 2 obtained for breathing. Continued follow-up r ecommended. POS: BH
--- NOTE | 2018-10-12 18:23 | PDOC.FPROB ---
FMR OB H&P: HPI - History of Present Illness Chief Complaint: Elevated BP and numbness in hands and feet. History of Present Illness: Ms. Mckee is a at 35.5wks here for evaluation of elevated blood pressures, palpitations, changes in vision, and numbness in her hands and feet. She states that she has Type II diabetes and has been being followed in clinic for weekly BPPs. Today in clinic she was noted to have elevated blood pressure. She states that in the last 24hours she has developed complete numbness in her hands and feet to the level of the wrist and mid-calf. She also notes that she has dark spots in her vision. She is also experiencing increasing shortness of breath. Patient sent from clinic for further evaluation of blood pressure and above symptoms. She denies contractions, vaginal bleeding, loss of fluid or mucus, and has been feeling baby move. Primary Care Physician: Dr. Mixon FMR OB H&P: Current - Care : 4 Para: 3003 Gestational age: 35.5 Due date: 11/11/2018 Dating Criteria: 6.1 week sonogram - OB Labs Blood type: O RH: positive Antibody Screen: negative HIV: negative RPR: negative Gonorrhea: negative Chlamydia: negative FMR OB H&P: History - Past Medical History PMH: Pregestational DM, hyperemesis gravidarum - OB History OB History: 2002 , viable F >37 weeks due to breech / failure to progress. 2005 , viable M >37 weeks, no complications 2017 , viable M >37 weeks, HTN at end of . did not require medications. - V BELT SKIVER History V BELT SKIVER History: Pap normal this . History of STDs w/ first that was treated. Has been negative since. - Surgical History Sx History: x3 - Social History Social History: Former smoker, quit 3 years ago. Smoked 2ppd x 20years. Denies alcohol or drug use. - Family History Family History: Mom: DM Dad: DM Aunts w/ breast ca. FMR OB H&P: Medications - Current Home Medications: Medication Instructions Recorded Confirmed Type Vitamin 1 tab PO DAILY 03/17/17 10/12/18 History metFORMIN [Glucophage] 2 tablet PO DAILY 08/06/18 10/12/18 History Insulin Glargine,Hum.Rec.Anlog 5 units SQ HS 10/12/18 10/12/18 History [Lantus Solostar] Allergies/Adverse Reactions: Allergies Allergy/AdvReac Type Severity Reaction Status Date / Time No Known Drug Allergies Allergy Verified 07/27/18 17:04 FMR OB H&P: ROS - Review of Systems General: denies: fever/chills, weight/appetite/sleep changes, recent trauma Eyes: reports: vision changes, scotomas. denies: double vision, floaters ENT: denies: nasal congestion, rhinorrhea, ringing in ears Cardiovascular: reports: palpitation, paroxysmal nocturnal dyspnea, orthopnea. denies: chest pain, edema Respiratory: reports: shortness of breath. denies: cough, congestion Gastrointestinal: reports: nausea, vomiting. denies: abdominal pain, diarrhea, constipation Genitourinary (Female): denies: incontinence, dysuria, hematuria, vaginal discharge, vaginal pain, vaginal bleeding, contractions, vaginal pressure Musculoskeletal: denies: pain, stiffness Neurologic: reports: numbness Integumentary: denies: itching, rash Breast: denies: lumps, skin changes, nipple changes Endocrine: denies: cold intolerance, heat intolerance Hematologic/Lymphatic: denies: prolonged or excessive bleeding Psychological: denies: depression, anxiety FMR OB H&P: Vital Signs - Maternal Vital signs: BP 132/84, HR 80s - Heart Tones Baseline: 140 Variability: moderate Acceleration: present FMR OB H&P: Physical Exam - Physical Exam General: NAD, awake, alert and oriented HEENT: normocephalic and atraumatic, PERRLA, EOMI, MMM, no scleral icterus, grossly normal vision, grossly normal hearing Neck: supple, FROM Chest: non-tender to palpation Heart: RRR, normal S1/S2, no murmurs/rubs/gallops, pulses present, no edema General: CTAB, no respiratory distress, good air movement, no rales/rhonchi, no wheezing, no retractions Abdomen: soft, gravid, non-tender, bowel sound present Musculoskeletal: normal gait and station, pulses present, FROM in all four extremities Deviation from normal: No sensation in feet to the level of the mid calf. No sensation in hands. Skin: no rash, good tugor Lymphatic: no unusual bruising or bleeding Psychiatric: intact recent and remote memory FMR OB H&P: Results - Labs Lab results: Laboratory Results - last 24 hr 10/12/18 10/12/18 10/12/18 17:08 17:08 17:08 WBC 4.9 RBC 3.65 L Hgb 10.8 L Hct 30.4 L MCV 83.4 MCH 29.5 MCHC 35.4 RDW 12.2 Plt Count 182 MPV 7.2 L Neutrophils % 57.6 Lymphocytes % 33.2 Monocytes % 8.4 Eosinophils % 0.7 Basophils % 0.2 Neutrophils # 2.8 Lymphocytes # 1.6 Monocytes # 0.4 Eosinophils # 0.0 Basophils # 0.0 Sodium 132 L Potassium 3.7 Chloride 104 Carbon Dioxide 21 L Anion Gap 11 BUN 5 L Creatinine 0.77 Estimated GFR (MDRD) Greater than 90 Glucose 75 Uric Acid 3.8 Calcium 9.2 Total Bilirubin 0.6 AST 10 ALT 7 L Alkaline Phosphatase 155 H B-Natriuretic Peptide 23.4 Serum Total Protein 6.7 Albumin 3.3 L Globulin 3.4 Albumin/Globulin Ratio 1.0 L Other labs: Laboratory Tests 10/12/18 10/12/18 10/12/18 17:08 17:08 18:45 WBC 4.9 Hgb 10.8 L Hct 30.4 L Plt Count 182 Creatinine 0.77 AST 10 ALT 7 L U Random Total Protein Less than 10 Urine Creatinine 10/12/18 18:45 WBC Hgb Hct Plt Count Creatinine AST ALT U Random Total Protein Urine Creatinine 72.06 - Imaging Imaging: EKG: NORMAL, NSR, 73BPM, BPP: 6/8, lost 2 for breathing. FMR OB H&P: A/P - Problem List (1) [place] Status: Acute Code(s): H53.419 - SCOTOMA INVOLVING CENTRAL AREA, UNSPECIFIED EYE (2) Gestational hypertension affecting third Status: Acute Code(s): O13.9 - GESTATIONAL HTN W/O SIGNIFICANT PROTEINURIA, UNSP TRIMESTER; O09.40 - SUPERVISION OF W GRAND MULTIPARITY, UNSP TRIMESTER Disposition: Dispo: obs Assessment and Plan: 1. Elevated BP's in office today. Complaining of scotoma, palpitations, shortness of breath, and peripheral neuropathy. - Pre-E workup: CBC, CMP, EKG, Urine protein/cr, NST, serial BPs x 4 hours to evaluate for Pre-E vs gestational HTN - EKG ordered 2. Type 2 diabetes: - continue home medications, metformin and lantus - pennie YOUNG while here Discussion: Date/Time: 10/12/181816 This H&P was discussed with [] and [] who agree with the above documentation and plan. Addendum - Attending - Attending Attestation Date/Time: 10/13/181925 I personally evaluated the patient and discussed the management with Dr. Goldberg last night. I agree with the History, Examination, Assessment and Plan documented above with any addition or exceptions noted below. At my assessment, patient clarified her vision as blurry at times, intermittently, for several weeks. She does not describe scotomas or flashes of light. I do not thin her visual disturbance is consistent with a pre-E clinical picture. Her BPs are not severely elevated. She meets criteria for Gestation HTN, but not Pre-E or Gest HTN with severe features. monitoring is Cat I. Will discharge with antepartum monitoring. Early term delivery at 37 weeks is planned.
== END 2018-10-12 22:20 | disposition home or self-care (01) ==
LOC: L&D/OP 16:29
PROVIDERS: ATTEND Family Medicine
DX: O13.3 Gestational [pregnancy-induced] hypertension without significant proteinuria, third trimester (principal); O24.113 Pre-existing type 2 diabetes mellitus, in pregnancy, third trimester; E11.9 Type 2 diabetes mellitus without complications; O09.40 Supervision of pregnancy with grand multiparity, unspecified trimester; Z3A.35 35 weeks gestation of pregnancy; Z79.4 Long term (current) use of insulin; Z87.891 Personal history of nicotine dependence
CPT/HCPCS: 36415; 76819; 80053; 82570; 83880; 84156; 84550; 85025; 93005; 93010

== ENCOUNTER 2018-10-17 06:53 | Day surgery (SDC) | payer OTHER ==
--- NOTE | 2018-10-17 08:14 | PDOC.FPROB ---
FMR OB H&P: HPI - History of Present Illness Chief Complaint: Headache and vaginal pressure History of Present Illness: 33 y/o , @36 wks gestation MLP confirmed with a 6.1 wk sono, presents to L&D with a headache and vaginal pressure. Patient has a medical history of pregestational type II DM, and high BP's at end of pregnancies. Patient states her BALES started yesterday and has been intermittent, 8/10 intensity and located in her occipital region radiating to upper back. She describes this pain "pulling behind her right eye," and experiencing blurred vision, floaters and lights flashing in her vision over the past week. She complains of numbness in her hands in feet since Monday. Patient complains of vaginal pressure for X5 days that has been constant. Patient states her BP at appointment yesterday was 135/95. Blood sugar this morning was 97. Patient denies any RUQ abdominal pain. Primary Care Physician: DAVID FMR OB H&P: Current - Care : 4 Para: 3 Gestational age: 36 Due date: 11/11/18, 10/24/18 scheduled Dating Criteria: LMP confirmed on 10.6 wk sono Course/Complications: pregestational type II DM, on metformin BID and lantus nightly. A1C 6.8 - OB Labs Blood type: O RH: positive Antibody Screen: negative HIV: negative RPR: negative HepBsAg: negative Rubella: immune Gonorrhea: negative Chlamydia: negative Pap Smear: NILM A1c: 6.8 GBS: unknown H&H: 11.2/33.3 FMR OB H&P: History - Past Medical History PMH: Pregestational Type II DM - OB History OB History: X3 prior c-sections - FORMER HAND History FORMER HAND History: Pap NILM - Surgical History Sx History: X3 - Social History Social History: Denies drug, alcohol and tobacco use - Family History Family History: DM II HTN Breast CA FMR OB H&P: Medications - Current Home Medications: Medication Instructions Recorded Confirmed Type Vitamin 1 tab PO DAILY 03/17/17 10/12/18 History metFORMIN [Glucophage] 2 tablet PO DAILY 08/06/18 10/12/18 History Insulin Glargine,Hum.Rec.Anlog 5 units SQ HS 10/12/18 10/12/18 History [Lantus Solostar] Cyclobenzaprine [Flexeril] 10 mg PO TID PRN #15 tab 10/17/18 Rx Allergies/Adverse Reactions: Allergies Allergy/AdvReac Type Severity Reaction Status Date / Time No Known Drug Allergies Allergy Verified 07/27/18 17:04 FMR OB H&P: ROS - Review of Systems General: denies: fever/chills, fatigue Eyes: reports: eye pain, vision changes, scotomas, floaters. denies: double vision ENT: denies: nasal congestion, rhinorrhea, sore throat Cardiovascular: reports: edema. denies: chest pain Respiratory: reports: shortness of breath. denies: cough, congestion, exercise intolerance Gastrointestinal: reports: nausea, vomiting. denies: abdominal pain, diarrhea, constipation Genitourinary (Female): reports: vaginal pain. denies: contractions Musculoskeletal: reports: swelling. denies: pain, arthritis/arthralgias Neurologic: reports: numbness (distal extremities), headache. denies: weakness Integumentary: reports: itching (over abdomen, legs and back, that is constant) . denies: rash, lesions FMR OB H&P: Vital Signs - Maternal Vital signs: BP 134/90 HR 93 - Heart Tones Baseline: 150 (reactive ) Variability: moderate Acceleration: present Deceleration: absent [place] contractions every: 0 FMR OB H&P: Physical Exam - Physical Exam General: NAD, awake, alert and oriented HEENT: normocephalic and atraumatic, PERRLA, EOMI, MMM, conjunctiva clear, no scleral icterus, grossly normal vision, oropharynx clear, good dention Neck: supple, FROM, trachea midline, no JVD Chest: non-tender to palpation, no lesions Heart: RRR, normal S1/S2, no murmurs/rubs/gallops, pulses present (2+ pedal) General: CTAB, no respiratory distress, good air movement, no rales/rhonchi, no wheezing, no retractions Abdomen: soft, gravid, non-tender, bowel sound present, no masses, no hernias Musculoskeletal: pulses present, FROM in all four extremities, no atrophy Neurological: cranial nerves II through XII intact, DTR +2, strength +5, no tremor, no focal deficit Deviation from normal: Decreased sensation to right lower extremity. Skin: no rash, capillary refill <2 seconds, no jaundice Lymphatic: no unusual bruising or bleeding, no purpura, no petechia Psychiatric: intact recent and remote memory, good judgement and insight, normal mood and affect FMR OB H&P: Results - Labs Lab results: Laboratory Results - last 24 hr 10/17/18 07:58 POC Glucose 97 FMR OB H&P: A/P - Problem List (1) Pregestational diabetes mellitus, modified White class B Status: Acute Code(s): O24.319 - UNSP PRE-EXISTING DIABETES IN , UNSP TRIMESTER (2) Gestational HTN Status: Acute Code(s): O13.9 - GESTATIONAL HTN W/O SIGNIFICANT PROTEINURIA, UNSP TRIMESTER Qualifiers: Trimester: third trimester Qualified Code(s): O13.3 - Gestational [ -induced] hypertension without significant proteinuria, third trimester (3) Headache in Status: Acute Code(s): O26.899 - OTH RELATED CONDITIONS, UNSPECIFIED TRIMESTER; R51 - HEADACHE (4) Pelvic pain affecting Status: Acute Code(s): O26.899 - OTH RELATED CONDITIONS, UNSPECIFIED TRIMESTER; R10.2 - PELVIC AND PERINEAL PAIN (5) [place] Status: Acute Code(s): H53.419 - SCOTOMA INVOLVING CENTRAL AREA, UNSPECIFIED EYE Disposition: Patients blood pressure lowered to 120's/80's. Discussed with patient the need for follow up out patient on Monday. Pt refused to come to appointment and states she will not come to anymore appointments because she "is tired of going back and forth," to appointments and home. Patient does not own a BP cuff, but states she will go to her pharmacy daily to measure her BP. We discussed the need to come back to L&D if her BP readings exceed 160/110. Patient voices understanding of these instructions. Patient states her headache is slightly relieved with the Tylenol. I sent her Cyclobenzaprine for muscle spasms, as this headache is most likely a tension headache. Labs for Pre-Eclampsia negative. Follow up with Dr. Lopez, PCP. Discussion: Date/Time: 10/17/18 0813 33 y/y , with PMH of gestational HTN and pregestational Type II DM, White class B, presents to L&D for Headache and Vaginal pressure. She is scheduled for a on 10/24. Her BP's have been elevated, Pre-Eclampsia workup warranted. 1. Gestational HTN -BP 134/90 -Concern for Pre-Eclampsia -CBC, CMP, Urine Protein/Creatinine labs ordered -Continue to monitor BP's 2. Pregestational Type II DM, White Class B -Metformin 1000 mg BID -Lantus Qhs -A1C 6.8 3. Headache -Labs ordered to rule out Pre-Eclampsia cause -Differential of tension and migraine BALES -Scotoma and visual changes present with BALES -Tylenol 1000 mg Q8H, PRN for pain 4. Pruritis -diffuse itching, over abdomen, legs and back -ordered bile acids 5. Third trimester IUP -Scheduled for a on 10/24 Dispo: D/C, labs for Pre-Eclampsia workup negative. Headache alleviated. BP readings decreased. Vitals stable This H&P was discussed with Dr. Ge and Dr. Vasques who agree with the above documentation and plan. Addendum - Attending - Attending Attestation Date/Time: 10/17/18 8786 I personally evaluated the patient and discussed the management with Dr. Martines I agree with the History, Examination, Assessment and Plan documented above with any addition or exceptions noted below - 33 yo female @ 36.2 weeks with h/o pregestational DM presents c/o BALES; occipital location and some blurry vision. Also c/o vaginal pressure. (+) FM. Labs: CMP, CBC within normal; Urine Pr/Cr=0.15. Serial Bp < 140/90 except for 1 reading of 140/80. Bales mildly improved with tylenol. Suspect tension type BALES with trapezius and paracervical muscle tightness present. Will d/c home with precautions. Instructed to monitor Bp at home. Patient scheduled for repeat next week.
[2018-10-17] MEDS ORDERED: hydrALAZINE 20 MG/ML VIAL SLOW IVP PRN (08:32)
[2018-10-17] MEDS ORDERED: Acetaminophen 500 MG TAB PO PRN ×2 (08:47→08:49)
[2018-10-17 09:01] VITALS: BMI 41.8
[2018-10-17 09:21] LABS: #Lymphocytes 1.3 thou/uL (1.20-3.40); #Monocytes 0.3 thou/uL (0.11-0.59); #Neutrophils 2.4 thou/uL (1.40-6.50); %Basophils 0.9 % (0.0-1.0); %Eosinophils 0.4 % (0.0-10.0); %Lymphocytes 32.7 % (21.0-51.0); %Monocytes 7.2 % (0.0-10.0); %Neutrophils 58.9 % (42.0-75.0); Hemoglobin 10.9 g/dL (12.0-16.0); Mean Corpuscular HGB CONC 34.1 g/dL (32.0-36.0); Mean Platelet Volume 7.4 fL (7.4-10.4); Platelet Count 168 thou/uL (130-400); RBC Distribution Width 12.3 % (11.5-14.5); Red Blood Cell (RBC) Count 3.91 mill/uL (4.20-5.40); White Blood Cell (WBC) Count 4.1 thou/uL (4.8-10.8)
[2018-10-17 09:46] LABS: ALT (SGPT) Less than 7 U/L (8-55); AST (SGOT) 10 U/L (5-34); Albumin 3.3 g/dL (3.5-5.0); Alkaline Phosphatase 174 U/L (40-150); Anion Gap 12 mmol/L (10-20); BUN (Urea Nitrogen) 6 mg/dL (7.0-18.7); Bilirubin, Total 0.7 mg/dL (0.2-1.2); Calc. Creatinine Clearance 213 mL/min (70-130); Calcium 9.2 mg/dL (7.8-10.44); Carbon Dioxide 20 mmol/L (22-29); Chloride 103 mmol/L (98-107); Estimated GFR-MDRD Greater than 90; Globulin 3.7 g/dL (2.4-3.5); Glucose 97 mg/dL (70-105); Potassium 3.9 mmol/L (3.5-5.1); Sodium 131 mmol/L (136-145)
[2018-10-17 10:30] LABS: Creatinine, Urine 175.75 mg/dL (47-110)
== END 2018-10-17 11:29 | disposition home health service (06) ==
LOC: ERS 06:53 → L&D/OP 07:04
PROVIDERS: ATTEND Student in an Organized Health Care Education/Training Program
DX: O26.893 Other specified pregnancy related conditions, third trimester (principal); R51 Headache; R10.2 Pelvic and perineal pain; O99.89 Other specified diseases and conditions complicating pregnancy, childbirth and the puerperium; H53.419 Scotoma involving central area, unspecified eye; L29.9 Pruritus, unspecified; O24.113 Pre-existing type 2 diabetes mellitus, in pregnancy, third trimester; E11.9 Type 2 diabetes mellitus without complications; O13.3 Gestational [pregnancy-induced] hypertension without significant proteinuria, third trimester; Z79.4 Long term (current) use of insulin; Z3A.36 36 weeks gestation of pregnancy
CPT/HCPCS: 36415; 36416; 80053; 82239; 82570; 84156; 85025; 99283

== ENCOUNTER 2020-01-07 08:29 | Emergency (ER) | payer OTHER, SELFPAY ==
[2020-01-07 09:25] LABS: #Lymphocytes 1.8 thou/uL (1.20-3.40); #Monocytes 0.2 thou/uL (0.11-0.59); #Neutrophils 1.9 thou/uL (1.40-6.50); %Basophils 0.4 % (0.0-1.0); %Eosinophils 0.9 % (0.0-10.0); %Lymphocytes 45.6 % (21.0-51.0); %Neutrophils 48.1 % (42.0-75.0); Hemoglobin 13.3 g/dL (12.0-16.0); Mean Corpuscular HGB CONC 33.5 g/dL (32.0-36.0); Mean Corpuscular Hemoglobin 29.7 pg (27.0-31.0); Mean Corpuscular Volume 88.5 fL (78.0-98.0); Mean Platelet Volume 7.3 fL (7.4-10.4); Platelet Count 207 thou/uL (130-400); RBC Distribution Width 12.8 % (11.5-14.5); White Blood Cell (WBC) Count 3.9 thou/uL (4.8-10.8)
--- NOTE | 2020-01-07 09:41 | ULT ---
Exam: Transabdominal and endovaginal pelvic ultrasound HISTORY: patient. Pending hCG. Spotting and cramping. COMPARISON: None TECHNIQUE: Transabdominal and endovaginal imaging of the pelvis is performed. Ovaries are interrogate d with grayscale, color flow, Doppler imaging and spectral wave form analysis FINDINGS: Uterus: 1.1 x 1.0 x 0.9 cm solid echotexture mass in the anterior myometrium, likely representing a s mall uterine leiomyoma. Uterus measurin.1 x 6.6 x 9.1 cm. Endometrium: Homogeneous echotexture. Endometrium diameter: 1.1 cm. No evidence of a gestational sac, yolk sac or pole within the endometrium. Free fluid: None Right ovary: Normal echotexture Right ovary measurement: 3.1 x 2.8 x 3.5 cm Left ovary: Normal echotexture Left ovary measurements: 2.6 x 2.2 x 3.2 cm Ovarian Doppler: There is vascular flow to the left and right ovary. IMPRESSION: 1. No sonographic evidence of intrauterine gestation. Differential considerations include missed spon taneous versus a sonographically occult ectopic versus an early intrauterine gestation. Follow-up ultrasound and serial beta-hCGs are recommended.
== END 2020-01-07 12:42 | disposition home or self-care (01) ==
LOC: ERS 08:29
DX: O20.9 Hemorrhage in early pregnancy, unspecified (principal); Z3A.01 Less than 8 weeks gestation of pregnancy; Z87.891 Personal history of nicotine dependence
CPT/HCPCS: 36415; 76856; 84702; 85025; 86900; 86901

== ENCOUNTER 2020-09-01 09:55 | Emergency (ER) | payer OTHER, MEDICAID | END 2020-09-01 13:00 | disposition home or self-care (01) | LOC: ERS 09:55 | DX: J02.9 Acute pharyngitis, unspecified (principal); Z87.891 Personal history of nicotine dependence | CPT/HCPCS: 87081; 87430; 99283 ==

== ENCOUNTER 2020-09-07 21:15 | Emergency (ER) | payer MEDICAID ==
[2020-09-07 22:34] LABS: Hemoglobin 12.3 g/dL (12.0-16.0); Mean Corpuscular HGB CONC 33.7 g/dL (32.0-36.0); Mean Corpuscular Hemoglobin 29.7 pg (27.0-31.0); Mean Corpuscular Volume 88.2 fL (78.0-98.0); Mean Platelet Volume 7.5 fL (7.4-10.4); Platelet Count 225 thou/uL (130-400); RBC Distribution Width 12.4 % (11.5-14.5); Red Blood Cell (RBC) Count 4.12 mill/uL (4.20-5.40); White Blood Cell (WBC) Count 5.4 thou/uL (4.8-10.8)
[2020-09-07 22:50] LABS: ALT (SGPT) 19 U/L (8-55); AST (SGOT) 14 U/L (5-34); Alkaline Phosphatase 78 U/L (40-110); Anion Gap 13 mmol/L (10-20); BUN (Urea Nitrogen) 10 mg/dL (7.0-18.7); Bilirubin, Total 0.2 mg/dL (0.2-1.2); Calc. Creatinine Clearance 0 mL/min (70-130); Calcium 8.9 mg/dL (7.8-10.44); Carbon Dioxide 24 mmol/L (22-29); Chloride 103 mmol/L (98-107); Globulin 3.5 g/dL (2.4-3.5); Glucose 206 mg/dL (70-105); Potassium 3.9 mmol/L (3.5-5.1); Protein, Total 7.5 g/dL (6.0-8.3); Sodium 136 mmol/L (136-145)
[2020-09-07 22:51] LABS: Band 1 % (5-11); Eosinophils 2 % (0-10); Lymphocytes 53 % (21-51); MDiff Complete? YES; Monocytes 6 % (0-10); Neutrophil 38 % (42-75)
== END 2020-09-08 02:12 | disposition home or self-care (01) ==
LOC: ERS 21:15
DX: R42 Dizziness and giddiness (principal); R10.30 Lower abdominal pain, unspecified; E11.9 Type 2 diabetes mellitus without complications; Z87.891 Personal history of nicotine dependence
CPT/HCPCS: 36415; 71045; 80053; 84484; 85025; 93005

== ENCOUNTER 2020-09-17 23:23 | Emergency (ER) | payer MEDICAID, OTHER ==
[2020-09-18 00:03] LABS: #Basophils 0.1 thou/uL (0.0-0.2); #Lymphocytes 2.8 thou/uL (1.20-3.40); #Monocytes 0.4 thou/uL (0.11-0.59); #Neutrophils 2.4 thou/uL (1.40-6.50); %Basophils 1.3 % (0.0-1.0); %Eosinophils 0.8 % (0.0-10.0); %Lymphocytes 48.8 % (21.0-51.0); %Monocytes 6.3 % (0.0-10.0); %Neutrophils 42.7 % (42.0-75.0); Hemoglobin 12.7 g/dL (12.0-16.0); Mean Corpuscular Hemoglobin 30.8 pg (27.0-31.0); Platelet Count 212 thou/uL (130-400); RBC Distribution Width 12.7 % (11.5-14.5); Red Blood Cell (RBC) Count 4.14 mill/uL (4.20-5.40); White Blood Cell (WBC) Count 5.7 thou/uL (4.8-10.8)
[2020-09-18 00:21] LABS: ALT (SGPT) 23 U/L (8-55); AST (SGOT) 15 U/L (5-34); Albumin 4.2 g/dL (3.5-5.0); Alkaline Phosphatase 72 U/L (40-110); Anion Gap 18 mmol/L (10-20); BUN (Urea Nitrogen) 9 mg/dL (7.0-18.7); Bilirubin, Total 0.3 mg/dL (0.2-1.2); Calc. Creatinine Clearance 0 mL/min (70-130); Calcium 10.2 mg/dL (7.8-10.44); Carbon Dioxide 19 mmol/L (22-29); Chloride 100 mmol/L (98-107); Glucose 230 mg/dL (70-105); Lipase 28 U/L (8-78); Potassium 3.8 mmol/L (3.5-5.1); Protein, Total 8.2 g/dL (6.0-8.3); Sodium 133 mmol/L (136-145)
[2020-09-18] MEDS ORDERED: HYDROcodone/Acetaminophen 5/325 mg Tablet ONE (01:18)
== END 2020-09-18 01:20 | disposition home or self-care (01) ==
LOC: ERS 23:23
DX: R07.9 Chest pain, unspecified (principal); M54.9 Dorsalgia, unspecified; E11.9 Type 2 diabetes mellitus without complications; Z87.891 Personal history of nicotine dependence
CPT/HCPCS: 36415; 71045; 80053; 83690; 84484; 85025; 93005

== ENCOUNTER 2023-12-11 13:34 | Emergency (ER) | payer MEDICAID, OTHER, SELFPAY ==
[2023-12-11 14:37] LABS: #Basophils 0.03 10x3/uL (0.0-0.2); %Basophils 0.4 % (0.0-1.0); %Eosinophils 0.4 % (0.0-10.0); %Lymphocytes 19.3 % (21.0-51.0); %Monocytes 4.2 % (0.0-10.0); %Neutrophils 75.6 % (42.0-75.0); Hematocrit 40.2 % (36.0-47.0); Hemoglobin 13.2 g/dL (12.0-16.0); Mean Corpuscular HGB CONC 32.8 g/dL (32.0-36.0); Mean Corpuscular Hemoglobin 28.4 pg (27.0-31.0); Mean Corpuscular Volume 86.5 fL (78.0-98.0); Mean Platelet Volume 10.1 fL (7.4-10.4); Platelet Count 212 10x3/uL (130-400); RBC Distribution Width 12.3 % (11.5-14.5); Red Blood Cell (RBC) Count 4.65 mill/uL (4.20-5.40)
[2023-12-11 14:54] LABS: ALT (SGPT) 12 U/L (8-55); AST (SGOT) 11 U/L (5-34); Albumin 3.9 g/dL (3.5-5.0); Alkaline Phosphatase 73 U/L (40-110); Anion Gap 13 mmol/L (10-20); BUN (Urea Nitrogen) 7 mg/dL (7.0-18.7); Bilirubin, Total 0.5 mg/dL (0.2-1.2); Calc. Creatinine Clearance 0 mL/min (70-130); Carbon Dioxide 25 mmol/L (22-29); Chloride 99 mmol/L (98-107); Estimated GFR 60; Glucose 216 mg/dL (70-105); Protein, Total 8.9 g/dL (6.0-8.3); Sodium 133 mmol/L (136-145)
== END 2023-12-11 17:08 | disposition left against medical advice (07) ==
LOC: ERS 13:34
DX: Z53.21 Procedure and treatment not carried out due to patient leaving prior to being seen by health care provider (principal)
CPT/HCPCS: 36415; 80053; 83605; 85025; 87040

== ENCOUNTER 2024-12-05 18:58 | Emergency (ER) | payer BC, SELFPAY ==
[2024-12-05] MEDS ORDERED: diphenhydrAMINE 25 MG CAP ONE (19:18)
[2024-12-05] MEDS ORDERED: Dexamethasone 10 MG/ML VIAL ONE (19:20)
== END 2024-12-05 20:46 | disposition home or self-care (01) ==
LOC: ERS 18:58
DX: R21 Rash and other nonspecific skin eruption (principal); E11.9 Type 2 diabetes mellitus without complications
CPT/HCPCS: 99282; J1100

== ENCOUNTER 2024-12-10 20:52 | Emergency (ER) | payer SELFPAY ==
[2024-12-11] MEDS ORDERED: predniSONE 20 MG TAB ONE (01:10)
== END 2024-12-11 01:18 | disposition home or self-care (01) ==
LOC: ERS 20:52
DX: R21 Rash and other nonspecific skin eruption (principal); E11.9 Type 2 diabetes mellitus without complications
CPT/HCPCS: 99282; J7512